=== PATIENT | female | born 1930 | race African-American/Black ===

== ENCOUNTER 2018-03-13 21:38 | Emergency (ER) | payer MEDICARE, MEDICAID ==
[2018-03-13] MEDS ORDERED: Acetaminophen 325 MG TAB ONE (22:13)
--- NOTE | 2018-03-13 22:49 | CT ---
CT OF HEAD NONCONTRAST: 03/13/18 INDICATION: Fall, posttraumatic pain. FINDINGS: There is a right frontal scalp/periorbital hematoma. No acute intracranial hemorrhage, mass effect, midline shift or ventriculomegaly. There is mild chronic ischemic disease of the cerebral white matte r. Scattered paranasal sinus mucosal thickening/retention cyst formation is present. IMPRESSION: No acute intracranial hemorrhage or mass effect. Chronic ischemic disease. Right frontal scalp/right periorbital hematoma. POS: [facility]
--- NOTE | 2018-03-13 22:53 | RAD ---
RIGHT ELBOW ONE VIEW 03/13/18 HISTORY: Fall. COMPARISON: None. FINDINGS: Only a single image of the right elbow was sent for interpretation. No acute fracture is appreciated on this single view. IMPRESSION: Limited exam. Recommend a full four view of the elbow. POS: [facility]
--- NOTE | 2018-03-13 22:55 | RAD ---
RIGHT WRIST THREE VIEW: 03/13/18 HISTORY: Pain. fall. COMPARISON: None. FINDINGS: There is no acute displaced fracture or malalignment. Soft tissues are unremarkable. IMPRESSION: No acute displaced fracture appreciated. POS: [facility]
--- NOTE | 2018-03-13 22:57 | RAD ---
RIGHT FOREARM TWO VIEW: 03/13/18 HISTORY: Fall. Pain. COMPARISON: None. FINDINGS: There is some ossification along the radial tuberosity which may be sequela of prior biceps tendon in jury. No acute fracture or malalignment. IMPRESSION: No acute fracture of the forearm. POS: [facility]
--- NOTE | 2018-03-13 23:02 | RAD ---
RIGHT SHOULDER THREE VIEW 03/13/18 HISTORY: Trauma. Fall. COMPARISON: None. FINDINGS: There is a subcoracoid fracture dislocation of the right humerus with fracture through the greater tu berosity displaced laterally approximately 3 cm. IMPRESSION: Fracture dislocation of the right shoulder. POS: [facility]
[2018-03-13] MEDS ORDERED: Lidocaine 1% (PF) 30 ML VIAL ONE (23:32)
[2018-03-13] MEDS ORDERED: Fentanyl 100 MCG/2 ML VIAL ONE (23:33)
--- NOTE | 2018-03-14 07:30 | RAD ---
2 VIEW RIGHT SHOULDER: Date: 03/13/18 INDICATION: History of fracture. Post reduction. FINDINGS: Fracture lucency centered about the base of the greater tuberosity is present. There has been interva l improved alignment, status post reduction. IMPRESSION: Reduced proximal right humeral fracture. POS: [facility]
== END 2018-03-14 00:20 | disposition home or self-care (01) ==
LOC: ERS 21:38
DX: S42.201A Unspecified fracture of upper end of right humerus, initial encounter for closed fracture (principal); S00.83XA Contusion of other part of head, initial encounter; I10 Essential (primary) hypertension; Z79.82 Long term (current) use of aspirin; W18.2XXA Fall in (into) shower or empty bathtub, initial encounter; Y92.009 Unspecified place in unspecified non-institutional (private) residence as the place of occurrence of the external cause
CPT/HCPCS: 23650; 70450; J2001; J3010

== ENCOUNTER 2018-03-30 10:07 | Inpatient (IN) | payer MEDICARE, MEDICAID ==
[2018-03-30 11:00] LABS: #Basophils 0.1 thou/uL (0.0-0.2); #Eosinphils 0.1 thou/uL (0.0-0.7); #Lymphocytes 2.3 thou/uL (1.20-3.40); #Neutrophils 11.3 thou/uL (1.40-6.50); %Basophils 0.4 % (0.0-1.0); %Eosinophils 0.7 % (0.0-10.0); %Lymphocytes 15.4 % (21.0-51.0); %Monocytes 6.8 % (0.0-10.0); %Neutrophils 76.7 % (42.0-75.0); Hemoglobin 6.3 g/dL (12.0-16.0); Mean Corpuscular HGB CONC 31.9 g/dL (32.0-36.0); Mean Corpuscular Hemoglobin 29.9 pg (27.0-31.0); Mean Corpuscular Volume 93.7 fL (78.0-98.0); Mean Platelet Volume 7.1 fL (7.4-10.4); Platelet Count 414 thou/uL (130-400); Red Blood Cell (RBC) Count 2.12 mill/uL (4.20-5.40); White Blood Cell (WBC) Count 14.7 thou/uL (4.8-10.8)
--- NOTE | 2018-03-30 11:37 | RAD ---
FRONTAL VIEW CHEST: Comparison: None. Clinical history: Lethargy, weakness. FINDINGS: There is tortuosity and ectasia of the thoracic aorta. There are multifocal interspersed areas of non specific air density throughout the mediastinum, some of which likely relates to air filled hiatal he rnia. There are additional tubular oriented traversing regions of air density which do noit confirm t o the tracheobronchial air column, difficult to further characterize on the basis of this exam. There is no lobar consolidation or effusion. No discrete pneumothorax. Vascular calcifications and osseous degenerative change present. There is a fracture/dislocation of the right shoulder. This was demonstrated on recent radiograph 03-13. Since that exam, there has been interval displacement of fracture fragmentation at the greater t uberosity as well as recurrent dislocation. Correlate clinically. IMPRESSION: 1. Interval displacement and recurrent dislocation of previously noted fracture of the proximal right humerus. Correlate clinically. 2. Nonspecific areas of air density of the mediastinum including hiatal hernia with probable air flui d level as discussed above. 3. No lobar consolidation. POS: [facility]
[2018-03-30 12:06] LABS: ALT (SGPT) 8 U/L (8-55); AST (SGOT) 13 U/L (5-34); Albumin 2.8 g/dL (3.4-4.8); Alkaline Phosphatase 70 U/L (40-150); Anion Gap 13 mmol/L (10-20); BUN (Urea Nitrogen) 40 mg/dL (9.8-20.1); Bilirubin, Total 0.3 mg/dL (0.2-1.2); CK (CPK) 32 U/L (29-168); Calc. Creatinine Clearance 0 mL/min (70-130); Calcium 8.1 mg/dL (7.8-10.44); Carbon Dioxide 22 mmol/L (23-31); Chloride 113 mmol/L (98-107); Estimated GFR-MDRD Greater than 90; Globulin 2.4 g/dL (2.4-3.5); Glucose 116 mg/dL (83-110); Lipase 31 U/L (8-78); Potassium 4.1 mmol/L (3.5-5.1); Protein, Total 5.2 g/dL (6.0-8.3); Sodium 144 mmol/L (136-145)
--- NOTE | 2018-03-30 12:27 | CT ---
CT HEAD NONCONTRAST: INDICATIONS: Weakness. COMPARISON: 03/13/2018 FINDINGS: The ventricular system is normal in size. There is no acute intracranial hemorrhage, mass effect, or midline shift. Mild chronic ischemic disease is present. Mild opacification of the paranasal sinus es is present. IMPRESSION: 1. No acute intracranial hemorrhage or mass effect. 2. Mild chronic ischemic disease of the cerebral white matter. POS: [facility]
[2018-03-30 13:54] LABS: INR-International Normal Ratio 1.1; Prothrombin Time 14.3 SEC (12.0-14.7)
[2018-03-30 13:55] LABS: PTT 21.9 SEC (22.9-36.1)
[2018-03-30 14:03] LABS: Iron 45 ug/dL (50-170); Iron Binding Capacity, Total 235 mcg/dL (265-497)
[2018-03-30] MEDS ORDERED: Pantoprazole 80 MG in Sodium Chloride 0.9% 100 ML IVPB SCH (14:45)
[2018-03-30] MEDS ORDERED: Acetaminophen 325 MG TAB ONE (16:05)
[2018-03-30] MEDS ORDERED: Sodium Chloride 0.9% 1,000 ML IV SCH (16:27)
[2018-03-30] MEDS ORDERED: Ondansetron ODT 4 MG TAB SL PRN (16:27)
[2018-03-30] MEDS ORDERED: Ondansetron PF 4 MG/2 ML Vial IVP PRN (16:27)
[2018-03-30] MEDS ORDERED: Acetaminophen 325 MG TAB PO PRN (19:46)
[2018-03-30] MEDS: Sodium Chloride 0.9% 1,000 ML IV SCH (20:19)
[2018-03-30] MEDS ORDERED: Pantoprazole 40 MG VIAL IVP SCH (20:30)
--- NOTE | 2018-03-30 23:23 | CON ---
DATE OF CONSULTATION: 03/30/2018 CHIEF COMPLAINT: Weakness. HISTORY OF PRESENT ILLNESS: Ms. Jimenez is an 87-year-old woman who had a recent fall with dislocation of her shoulder. She has since then been taking ibuprofen 400 mg most days along with her routine aspirin. Today, she felt very weak and had decreased appetite and had trouble standing on her own. She then had a large black stool and her family brought her to the emergency room for further care. She was found to have severe anemia. GI was consulted to evaluate GI bleed. She has no abdominal pain. No nausea or vomiting. No red blood in the stool. PAST MEDICAL HISTORY: Hypertension. PAST SURGICAL HISTORY: Negative. FAMILY HISTORY: Negative for GI malignancies. SOCIAL HISTORY: No alcohol, tobacco, or drugs. ALLERGIES: NO KNOWN DRUG ALLERGIES. MEDICATIONS: Prior to admission; aspirin, lactulose, mirtazapine, verapamil, and the ibuprofen lately. REVIEW OF SYSTEMS: Negative x10 systems reviewed except as stated in the history of present illness. PHYSICAL EXAMINATION: VITAL SIGNS: Blood pressure 143/70, pulse 110, temperature 98.8. GENERAL: She is in no acute distress. She is alert and oriented x3. HEENT: Her eyes have no scleral icterus. Oropharynx is clear without lesions. No cervical or supraclavicular lymphadenopathy. LUNGS: Clear to auscultation bilaterally. HEART: Tachycardic, S1, S2 without murmur. ABDOMEN: Soft, nontender, and nondistended. Bowel sounds are present. EXTREMITIES: No lower extremity edema. RECTAL: Reveals scant black stool in the rectal vault. LABORATORY DATA: White blood cell count 14.7, hemoglobin 6.3, platelets 414. INR 1.1. Creatinine is 0.73. Iron 45, TIBC 235, ferritin 15.4, bilirubin 0.3, AST 13, ALT 8, alkaline phosphatase 70, albumin 2.8, lipase 31. IMPRESSION: 1. Gastrointestinal bleed with melena suggestive of upper gastrointestinal bleeding source. She would most likely be having peptic ulcer related to the recent NSAID use that she has been taking since her fall. She also takes aspirin daily. 2. Anemia of acute blood loss. RECOMMENDATIONS: 1. She is receiving 2 units of transfusion. 2. Proton pump inhibitor drip. 3. She only has scant black stool in the rectal vault now and only had one bowel movement today. She does not appear to be having a rapid bleed at this point. I think it would be reasonable to finish out her transfusions and then follow through with endoscopy tomorrow and give PPI drip in the meantime. We can perform more urgent endoscopy if needed, she starts showing more significant signs of rapid bleeding. Job ID: [id number]
--- NOTE | 2018-03-31 01:07 | HP ---
CHIEF COMPLAINT: Weakness. HISTORY OF PRESENT ILLNESS: Ms. Jimenez is an 87-year-old female with past medical history of hypertension, chronic constipation, and has been feeling weak since yesterday. No dizziness. No syncope. The patient is unable to ambulate secondary to weakness. The patient has a history of tarry stool for few days after several days of constipation. The patient was brought to the ER because of weakness. She was found to be severely anemic, hemoglobin of 6.3, and heme occult was positive. The patient also had a shoulder injury, recently had dislocation of the shoulder about 2 or 3 weeks ago, right shoulder. Currently, the patient feels better. She was started on blood transfusion. Does not have any chest pain or shortness of breath. No nausea or vomiting. No abdominal pain. No headache. PAST MEDICAL HISTORY: 1. Hypertension. 2. Chronic constipation. PAST SURGICAL HISTORY: Status post right cyst surgery, status post tubal ligation. CURRENT MEDICATIONS: The patient is on: 1. Aspirin 81 mg daily. 2. Verapamil 300 mg daily. 3. Lactulose 15 mL daily. ALLERGIES: NO KNOWN DRUG ALLERGIES. FAMILY HISTORY: Nothing contributory. SOCIAL HISTORY: Patient lives with family. No history of smoking. No history of drug abuse. REVIEW OF SYSTEMS: CARDIOVASCULAR: No chest pain. No shortness of breath. RESPIRATORY: No fever or cough. GASTROINTESTINAL: No abdominal pain, nausea, or vomiting. Has had diarrhea, tarry stools. CENTRAL NERVOUS SYSTEM: No headache. No dizziness. PHYSICAL EXAMINATION: GENERAL: The patient is alert, awake, and oriented x3. VITAL SIGNS: Temperature 98, pulse 100, respiratory rate 20, blood pressure 130 /60. HEENT: Head is normocephalic and atraumatic. Pupils are equal and reactive. Nasopharynx is pale and dry. Hard and soft palate, no lesions. SKIN: Turgor decreased. NECK: Supple. No JVD. LUNGS: Breath sounds diminished bilaterally. Percussion dull bilaterally. No rales. No rhonchi. HEART: S1 and S2. Regular. ABDOMEN: Soft. No distention. No tenderness. Normal bowel sounds present. RECTAL: A rectal exam was done and revealed heme-positive stool. CENTRAL NERVOUS SYSTEM: No focal deficits. LABORATORY DATA: CBC shows WBC 14, hemoglobin 6.3, hematocrit 19, platelets 414 Metabolic panel; sodium 140, potassium 4, chloride 101, CO2 of 20, BUN 40, creatinine 0.7, glucose 90 EKG shows sinus tachycardia with heart rate of 109. No acute ST changes. Chest x-ray, negative. ASSESSMENT: 1. Anemia, symptomatic. 2. Gastrointestinal bleeding. 3. Hypertension. 4. Chronic constipation. 5. History of shoulder dislocation, right. PLAN: 1. Vital signs q.4 hours. Activity as tolerated. 2. Allergies, NKDA. 3. IV fluids, normal saline 160 mL/h. 4. Transfuse 2 units of packed red blood cells. 5. Continue home medications. 6. Hold aspirin. 7. Diet n.p.o. 8. GI consult. 9. Protonix 40 mg IV piggyback daily. Job ID: [id number] MTD[facility]
[2018-03-31 05:42] LABS: Anion Gap 10 mmol/L (10-20); BUN (Urea Nitrogen) 20 mg/dL (9.8-20.1); Calc. Creatinine Clearance 58 mL/min (70-130); Calcium 7.2 mg/dL (7.8-10.44); Carbon Dioxide 19 mmol/L (23-31); Chloride 120 mmol/L (98-107); Estimated GFR-MDRD Greater than 90; Glucose 82 mg/dL (83-110); Potassium 3.4 mmol/L (3.5-5.1); Sodium 146 mmol/L (136-145)
[2018-03-31 05:56] LABS: Band 2 % (5-11); Eosinophils 3 % (0-10); Hemoglobin 9.2 g/dL (12.0-16.0); Lymphocytes 24 % (21-51); MDiff Complete? YES; Mean Corpuscular HGB CONC 33.8 g/dL (32.0-36.0); Mean Corpuscular Hemoglobin 30.4 pg (27.0-31.0); Mean Corpuscular Volume 89.9 fL (78.0-98.0); Mean Platelet Volume 6.6 fL (7.4-10.4); Monocytes 14 % (0-10); Neutrophil 57 % (42-75); Nucleated RBC 1 % (0); Platelet Count 282 thou/uL (130-400); Polychromasia SLIGHT = 2-3 cells (100X) (0-2/hpf); Red Blood Cell (RBC) Count 3.01 mill/uL (4.20-5.40); White Blood Cell (WBC) Count 7.5 thou/uL (4.8-10.8)
[2018-03-31] MEDS ORDERED: Pantoprazole 40 MG VIAL IVP SCH (09:00)
[2018-03-31] MEDS ORDERED: Promethazine HCl 25 MG/ML VIAL SLOW IVP PRN (12:36)
[2018-03-31] MEDS ORDERED: Promethazine HCl 25 MG/ML VIAL IM PRN (12:36)
[2018-03-31] MEDS ORDERED: Ondansetron HCl/PF 4 MG/2 ML Vial IVP PRN (12:36)
[2018-03-31] MEDS ORDERED: PROPOFOL 200 MG/20 ML VIAL ONE (13:26)
[2018-03-31] MEDS ORDERED: Lidocaine 1% PF 5 ML VIAL ONE (13:26)
[2018-03-31] MEDS: Sodium Chloride 0.9% 1,000 ML IV SCH (15:07)
[2018-03-31] MEDS ORDERED: Cepastat Lozenges 1 LOZ PO PRN (15:47)
[2018-03-31] MEDS ORDERED: Verapamil PM 100 MG CAP PO SCH (18:45)
[2018-03-31] MEDS ORDERED: Meclizine HCl 25 MG TAB PO SCH (18:45)
--- NOTE | 2018-03-31 19:06 | RAD ---
TWO VIEWS OF THE RIGHT SHOULDER 03/31/18 COMPARISON: 03/13/18. HISTORY: Shoulder dislocation. FINDINGS: There is no evidence for dislocation on this exam. There is no widening of the acromioclavicular or c oracoclavicular interspace. There is a comminuted fracture of the proximal right humerus laterally in the region of the greater t uberosity. Displaced fracture fragments extend superiorly. IMPRESSION: Comminuted and displaced fracture of the proximal right humerus at level of greater tuberosity. POS: [facility]
[2018-03-31] MEDS: Potassium Chloride 20 MEQ TAB PO SCH ×2 (20:12→23:43)
[2018-03-31] MEDS: Pantoprazole 40 MG VIAL IVP SCH (20:12)
[2018-03-31] MEDS ORDERED: Mirtazapine 15 MG TAB PO SCH (21:00)
[2018-03-31] MEDS ORDERED: Prevnar 13-Val Conj/PF 0.5 ML SYRINGE IM ONE (21:00)
--- NOTE | 2018-03-31 21:15 | OP ---
DATE OF PROCEDURE: 03/31/2018 PROCEDURE PERFORMED: EGD with biopsy. PREPROCEDURE DIAGNOSES: 1. Anemia, requiring transfusion. 2. Melena. 3. Heavy NSAID use. POSTPROCEDURE DIAGNOSES: 1. Severe grade 4 reflux esophagitis involving the distal half of the esophagus with mucosal sloughing and exudate as well as a friability with bleeding which is touching it. Biopsies were obtained in the mid area of the Tello's. No atypical ulcers or masses were seen. 2. Hiatal hernia 9 cm. 3. Normal stomach and duodenum. ANESTHESIA: TIVA. RECOMMENDATIONS: 1. Await biopsies. 2. B.i.d. PPI IV q.12 hours. 3. Full liquid diet. DESCRIPTION OF PROCEDURE: The patient was informed of the risks, benefits, and possible complications of endoscopy including perforation, reaction to medication and aspiration, and informed consent was obtained. The patient was brought to the endoscopy suite, where she was sedated in gradual fashion. Once she was comfortable, a bite block ws placed in the oropharynx. The endoscope was advanced to the esophagus, stomach, second, and third portion of the duodenum and the scope was slowly removed. Duodenum in the third portion was normal. Stomach was normal in forward and retroflexed views except for hiatal hernia. There was clear bile in the stomach and duodenum. The distal esophagus was notable for erosive esophagitis from the GE junction up to about mid esophagus. There was exudate. There was no active bleeding identified. There was some nodularity in the distal esophagus and slight oozing with just touching the esophagus with the scope. Biopsies were obtained of the distal esophagus to evaluate for possible Tello's. Surveillance biopsies were not taken through the entire esophagus with the recent issues with bleeding. The scope was removed. The patient tolerated the procedure well with no complications. Job ID: [id number]
[2018-04-01 08:14] LABS: Hemoglobin 8.8 g/dL (12.0-16.0)
[2018-04-01] MEDS: Pantoprazole 40 MG VIAL IVP SCH ×2 (08:21→20:14)
[2018-04-01] MEDS: Verapamil PM 100 MG CAP PO SCH (08:22)
[2018-04-01 08:36] LABS: #Eosinphils 0.3 thou/uL (0.0-0.7); #Lymphocytes 1.6 thou/uL (1.20-3.40); #Monocytes 0.9 thou/uL (0.11-0.59); #Neutrophils 4.9 thou/uL (1.40-6.50); %Basophils 0.2 % (0.0-1.0); %Eosinophils 3.6 % (0.0-10.0); %Lymphocytes 20.8 % (21.0-51.0); %Monocytes 11.7 % (0.0-10.0); %Neutrophils 63.7 % (42.0-75.0); Anion Gap 9 mmol/L (10-20); BUN (Urea Nitrogen) 7 mg/dL (9.8-20.1); Calc. Creatinine Clearance 54 mL/min (70-130); Carbon Dioxide 23 mmol/L (23-31); Chloride 112 mmol/L (98-107); Estimated GFR-MDRD Greater than 90; Glucose 84 mg/dL (83-110); Hemoglobin 8.8 g/dL (12.0-16.0); Mean Corpuscular HGB CONC 33.1 g/dL (32.0-36.0); Mean Corpuscular Volume 93.8 fL (78.0-98.0); Mean Platelet Volume 6.7 fL (7.4-10.4); Platelet Count 319 thou/uL (130-400); Potassium 4.1 mmol/L (3.5-5.1); RBC Distribution Width 16.3 % (11.5-14.5); Red Blood Cell (RBC) Count 2.85 mill/uL (4.20-5.40); Sodium 140 mmol/L (136-145); White Blood Cell (WBC) Count 7.6 thou/uL (4.8-10.8)
[2018-04-01] MEDS ORDERED: Loratadine/Pseudoephedrine 10/240 mg Tablet PO SCH (09:00)
[2018-04-01] MEDS ORDERED: Meclizine HCl 25 MG TAB PO SCH (10:30)
[2018-04-01] MEDS: Meclizine HCl 25 MG TAB PO SCH (20:13)
--- NOTE | 2018-04-02 00:09 | PRG ---
DATE OF SERVICE: 04/01/2018 SUBJECTIVE: Ms. Jimenez has had no bowel movement today. She has tolerated a full liquid diet. OBJECTIVE: VITAL SIGNS: Temperature is 99.0, pulse 93, and blood pressure 126/68. GENERAL: She is in no acute distress. Awake and alert. LUNGS: Clear to auscultation bilaterally. HEART: Regular rate and rhythm. ABDOMEN: Soft, nontender, and nondistended. Bowel sounds are present. EXTREMITIES: No lower extremity edema. She has significant right shoulder pain. LABORATORY DATA: Hemoglobin is 8.8. IMPRESSION: 1. Acute gastrointestinal bleed, secondary to severe erosive esophagitis. Biopsies showed suggestion of Tello esophagus. 2. Anemia of acute blood loss. RECOMMENDATIONS: 1. Change to pantoprazole 40 mg by mouth twice daily. 2. Advance to a soft diet. 3. She should be ready to discharge home once she is tolerating a solid diet well. Also she is having problems with pain control with her shoulder and dizziness today. She was started on meclizine for the dizziness. She was advised to avoid NSAIDs for her shoulder. Job ID: [id number]
[2018-04-02] MEDS: Meclizine HCl 25 MG TAB PO SCH ×2 (08:52→20:50)
[2018-04-02] MEDS: Verapamil PM 100 MG CAP PO SCH (08:54)
--- NOTE | 2018-04-02 10:46 | CON ---
DATE OF CONSULTATION: 04/02/2018 REQUESTING PHYSICIAN: Florence lin. CONSULTING PHYSICIAN: Dmitriy Spicer MD REASON FOR CONSULTATION: Right shoulder fracture. HISTORY OF PRESENT ILLNESS: This is an 87-year-old female, who is status post right shoulder dislocation with greater tuberosity fracture. This was originally reduced in the emergency department with great alignment of the greater tuberosity fracture on March 13, 2018. After that time, she followed up in our office for further care. She has been in a shoulder immobilizer since the time of her injury. She presented to the [facility] for symptomatic anemia. She has been admitted. During the course of her admission, she had a scheduled followup in our office. We were asked to see the patient while she is in the hospital. Currently at bedside, the patient reports that she has been compliant with her shoulder immobilizer. She denies any pain to the shoulder at this time. She is right-hand dominant. Otherwise, no new events or falls. The patient states that she did originally have some swelling in her right hand. This has resolved. She states she is able to move her fingers more freely at this time. PAST MEDICAL HISTORY: Significant for hypertension and chronic constipation. PAST SURGICAL HISTORY: Status post right cyst and status post tubal ligation. ALLERGIES: NO KNOWN DRUG ALLERGIES. FAMILY HISTORY: Noncontributory. SOCIAL HISTORY: The patient lives at home with family. No history of smoking, alcohol, or illicit drug use. REVIEW OF SYSTEMS: A 10-point review of systems conducted and otherwise negative except for stated above. PHYSICAL EXAMINATION: VITAL SIGNS: Temperature 98.5, pulse 89, respiratory rate 14, O2 saturation is 90% on room air, and blood pressure is 130/73. GENERAL: The patient is awake and alert. She is in no apparent distress. She is pleasant and cooperative with exam today. There is family at bedside in her inpatient room at this time. HEENT: Head is normocephalic, atraumatic. NECK: Supple. Trachea in midline. Breathing is nonlabored. EXTREMITIES: The right upper extremity was evaluated. There is currently a shoulder immobilizer intact. She is comfortable in this, however, does appear loose and not well-fitting around the waist. The patient is nontender to palpation over the proximal humerus and shoulder region. There is no ecchymosis. No significant soft tissue swelling. Range of motion, not assessed. The patient is able to move digits about freely in the hand and the wrist. Distal neurovascular status is intact. IMAGING DATA: Radiographic imaging taken during the hospital admission shows evidence of a greater tuberosity fracture. In comparison with films taken on March 13, this does appear to be more displaced than previously. No new injuries are visualized. ASSESSMENT: Right shoulder greater tuberosity fracture, status post shoulder dislocation. PLAN: The patient is in no distress at this time. She has no shoulder pain. She has been comfortable in a shoulder immobilizer. It does appear that her fracture site has moved slightly since previous films. The patient does appear comfortable. We will plan on leaving her in immobilization. We will transition her into a sling, so that she is more comfortable as it appears that her shoulder immobilizer is not fitting her properly at this time. She will follow up in our office for further evaluation in 3 to 4 weeks. Job ID: [id number]
[2018-04-02] MEDS: Docusate 100 MG CAP PO SCH (20:50)
[2018-04-03 06:48] LABS: #Eosinphils 0.5 thou/uL (0.0-0.7); #Lymphocytes 1.2 thou/uL (1.20-3.40); #Monocytes 0.8 thou/uL (0.11-0.59); #Neutrophils 2.9 thou/uL (1.40-6.50); %Basophils 0.2 % (0.0-1.0); %Eosinophils 9.9 % (0.0-10.0); %Lymphocytes 22.2 % (21.0-51.0); %Monocytes 14.4 % (0.0-10.0); %Neutrophils 53.2 % (42.0-75.0); Hemoglobin 8.3 g/dL (12.0-16.0); Mean Corpuscular HGB CONC 32.3 g/dL (32.0-36.0); Mean Corpuscular Volume 95.9 fL (78.0-98.0); Mean Platelet Volume 6.2 fL (7.4-10.4); Platelet Count 324 thou/uL (130-400); RBC Distribution Width 16.2 % (11.5-14.5); Red Blood Cell (RBC) Count 2.68 mill/uL (4.20-5.40); White Blood Cell (WBC) Count 5.4 thou/uL (4.8-10.8)
[2018-04-03 06:55] LABS: Anion Gap 8 mmol/L (10-20); BUN (Urea Nitrogen) 9 mg/dL (9.8-20.1); Calc. Creatinine Clearance 50 mL/min (70-130); Calcium 7.8 mg/dL (7.8-10.44); Carbon Dioxide 27 mmol/L (23-31); Chloride 108 mmol/L (98-107); Estimated GFR-MDRD Greater than 90; Glucose 86 mg/dL (83-110); Sodium 139 mmol/L (136-145)
[2018-04-03] MEDS: Docusate 100 MG CAP PO SCH ×2 (08:01→20:54)
[2018-04-03] MEDS: Verapamil PM 100 MG CAP PO SCH (08:03)
[2018-04-03] MEDS: Meclizine HCl 25 MG TAB PO SCH ×2 (08:03→20:55)
--- NOTE | 2018-04-03 20:46 | EKG ---
Test Reason : Blood Pressure : / mmHG Vent. Rate : 109 BPM Atrial Rate : 109 BPM P-R Int : 138 ms QRS Dur : 092 ms QT Int : 370 ms P-R-T Axes : 049 -28 035 degrees QTc Int : 498 ms Sinus tachycardia Otherwise normal ECG Confirmed by YUSUF LOPEZ D.O. ([id number]), assistant film editor LENI RICHARDS ([id number]) on 04/03/2018 8:45:39 PM Referred By: Confirmed By:YUSUF LOPEZ D.O.
[2018-04-03] MEDS: Ferrous Sulfate 325 MG TAB PO SCH (20:54)
[2018-04-04 08:13] VITALS: BP 146/86; TEMP 98.8
[2018-04-04 08:58] LABS: #Eosinphils 0.4 thou/uL (0.0-0.7); #Lymphocytes 1.8 thou/uL (1.20-3.40); #Monocytes 0.8 thou/uL (0.11-0.59); #Neutrophils 3.6 thou/uL (1.40-6.50); %Basophils 0.2 % (0.0-1.0); %Eosinophils 6.5 % (0.0-10.0); %Lymphocytes 26.5 % (21.0-51.0); %Monocytes 12.2 % (0.0-10.0); %Neutrophils 54.6 % (42.0-75.0); Hemoglobin 11.1 g/dL (12.0-16.0); Mean Corpuscular HGB CONC 32.3 g/dL (32.0-36.0); Mean Corpuscular Hemoglobin 30.5 pg (27.0-31.0); Mean Corpuscular Volume 94.4 fL (78.0-98.0); Mean Platelet Volume 6.3 fL (7.4-10.4); Platelet Count 396 thou/uL (130-400); RBC Distribution Width 15.7 % (11.5-14.5); Red Blood Cell (RBC) Count 3.64 mill/uL (4.20-5.40); White Blood Cell (WBC) Count 6.7 thou/uL (4.8-10.8)
[2018-04-04 09:22] LABS: Anion Gap 9 mmol/L (10-20); BUN (Urea Nitrogen) 6 mg/dL (9.8-20.1); Calc. Creatinine Clearance 46 mL/min (70-130); Calcium 8.5 mg/dL (7.8-10.44); Carbon Dioxide 28 mmol/L (23-31); Chloride 106 mmol/L (98-107); Estimated GFR-MDRD 85; Glucose 117 mg/dL (83-110); Potassium 3.7 mmol/L (3.5-5.1); Sodium 139 mmol/L (136-145)
[2018-04-04] MEDS: Verapamil PM 100 MG CAP PO SCH (09:48)
[2018-04-04] MEDS: Docusate 100 MG CAP PO SCH (09:49)
[2018-04-04] MEDS: Ferrous Sulfate 325 MG TAB PO SCH (09:49)
[2018-04-04] MEDS: Meclizine HCl 25 MG TAB PO SCH (09:53)
--- NOTE | 2018-04-06 08:33 | DIS ---
DATE OF ADMISSION: 03/30/2018 DATE OF DISCHARGE: 04/04/2018 ADMITTING DIAGNOSES: 1. Severe anemia, symptomatic. 2. Gastrointestinal bleeding. 3. Hypertension. 4. Chronic constipation. 5. History of shoulder dislocation, right. FINAL DIAGNOSES: 1. Symptomatic anemia, status post transfusion. 2. Gastrointestinal bleeding secondary to severe erosive esophagitis. 3. Hypertension. 4. Chronic constipation. 5. Right shoulder dislocation with fracture. BRIEF SUMMARY OF HOSPITAL COURSE: Ms. Jimenez is an 87-year-old female, admitted because of weakness. The patient was found to be severely anemic with a hemoglobin of 6.3, the patient was transfused and it came up to 8 g. Her Hemoccult was positive. There is evidence of GI bleeding and GI consulted. The patient was seen by Dr. Brown and he suggested EGD. EGD was done and it showed severe erosive esophagitis causing bleeding. also showed Tello esophagus. The patient was transfused as needed and her hemoglobin improved to 11 g after second transfusion because of anemia which was symptomatic. The patient started on diet. She tolerates the diet very well and she is able to ambulate. In view of improvement, the patient is being discharged home. PHYSICAL EXAMINATION: GENERAL: At the time of discharge, she was stable. VITAL SIGNS: Stable. LUNGS: Clear. HEART: Heart sounds regular. ABDOMEN: Soft, nontender. Bowel sounds present. DISCHARGE MEDICATIONS: Include 1. Verapamil 300 mg daily. 2. Lactulose 15 mL daily. 3. Meclizine 25 b.i.d. 4. Protonix 40 mg b.i.d. 5. Ferrous sulfate 325 b.i.d. 6. Colace 100 mg b.i.d. The patient did have some episodes of dizziness which improved with meclizine. FOLLOWUP: She will come for followup in two weeks. Job ID: [id number] [facility]
== END 2018-04-04 13:48 | disposition home or self-care (01) | DRG 378 ==
LOC: ERS 10:07 → T4-A 16:44
PROVIDERS: ADMIT Internal Medicine; ATTEND Internal Medicine
PROC: 30233N1 Transfusion of Nonautologous Red Blood Cells into Peripheral Vein, Percutaneous Approach (ICD-10-PCS; 2018-03-30)
PROC: 0DB38ZX Excision of Lower Esophagus, Via Natural or Artificial Opening Endoscopic, Diagnostic (ICD-10-PCS; principal; 2018-03-31)
DX: K92.2 Gastrointestinal hemorrhage, unspecified (principal); D62 Acute posthemorrhagic anemia; K21.0 Gastro-esophageal reflux disease with esophagitis; K22.70 Barrett's esophagus without dysplasia; K44.9 Diaphragmatic hernia without obstruction or gangrene; S42.91XD Fracture of right shoulder girdle, part unspecified, subsequent encounter for fracture with routine healing
CPT/HCPCS: 36415; 36416; 36430; 70450; 71045; 80048; 80053; 82274; 82550; 82728; 83540; 83550; 83690; 84484; 85014; 85018; 85025; 85610; 85730; 86850; 86900; 86901; 88305; 88312; 88313; 93005; 96360; 96365; C9113; J2001; J2704; J7050; P9016